=== PATIENT | female | born 1945 | race Caucasian/White ===

== ENCOUNTER 2022-06-16 13:41 | Outpatient (CLI) | payer MEDICARE, OTHER, SELFPAY ==
--- NOTE | 2022-06-16 14:19 | XR_ITS ---
WS: [id number] XR cervical spine fl/ex [id number] REASON FOR EXAM: CERVICALGIA FINDINGS: Reversal of the normal lordosis of the cervical spine. Significant deviation of the cervical spine from vertical orientation. There is a linear lucency anteriorly in the base of the odontoid which has sclerotic margins. More po steriorly there appears to be bony contiguity. The odontoid C1 articulation appears abnormal possibly due to fusion. C6 and C7 are fused. C5-C6 and C4-C5 interspaces are significantly narrowed. Mild narrowing of the C3-C4 disc space. 2 mm of neutral anterolisthesis of C2 on C3. 3 mm of neutral anterolisthesis of C3 on C4. The above the listheses do not appear to change significantly with flexion. The essentially completel y reduced with extension. No other abnormal vertebral body movement with flexion and extension. XR/XR cervical spine fl/ex [id number] IMPRESSION: Abnormal curvature and orientation of the cervical spine as above. Abnormality of C1/C2 which is incompletely characterized. CT scan of the cervic al spine is recommended as clinically warranted to fully characterize the perce ived abnormality. Degenerative disc disease as described above. Fusion of C6 and C7.
== END 2022-06-16 13:42 | disposition home or self-care (01) ==
PROVIDERS: Visit Provider Nurse Practitioner
DX: M54.2 Cervicalgia (principal)
CPT/HCPCS: 72040

== ENCOUNTER → 2022-07-06 11:43 | Outpatient (BNVA) | payer MEDICARE, OTHER, SELFPAY | PROVIDERS: PCP Family Medicine; Visit Provider Internal Medicine Rheumatology | DX: M81.0 Age-related osteoporosis without current pathological fracture (principal); Z79.899 Other long term (current) drug therapy; M19.042 Primary osteoarthritis, left hand; M19.041 Primary osteoarthritis, right hand; M25.50 Pain in unspecified joint | CPT/HCPCS: 36415; 73130; 80076; 82306; 82565; 85025; 85651; 86140; 86200; 86431; 99204 ==

== ENCOUNTER 2022-07-29 13:23 | Oncology outpatient (recurring) (ONCR) | payer MEDICARE, OTHER, SELFPAY ==
[2022-07-29 13:51] VITALS: BP 117/71; PULSE 80; RESP 16; TEMP 37.1; O2SAT 96
[2022-07-29] MEDS: romosozumab-aqqg 210 mg/2.34 mL syr SUBCUT (14:15)
== END 2022-08-07 23:59 | disposition home or self-care (01) ==
PROVIDERS: PCP Family Medicine; Visit Provider Internal Medicine Rheumatology
DX: M81.0 Age-related osteoporosis without current pathological fracture (principal); Z79.899 Other long term (current) drug therapy
CPT/HCPCS: 96372; J3590

== ENCOUNTER → 2022-08-17 11:01 | Outpatient (BNVA) | payer MEDICARE, OTHER, SELFPAY | PROVIDERS: PCP Family Medicine; Visit Provider Podiatrist Foot & Ankle Surgery | DX: I73.9 Peripheral vascular disease, unspecified (principal); M20.41 Other hammer toe(s) (acquired), right foot; M20.42 Other hammer toe(s) (acquired), left foot; B35.1 Tinea unguium | CPT/HCPCS: 11721; 99203 ==

== ENCOUNTER 2022-08-26 11:29 | Oncology outpatient (recurring) (ONCR) | payer MEDICARE, OTHER, SELFPAY ==
[2022-08-26] MEDS: romosozumab-aqqg 210 mg/2.34 mL syr SUBCUT (12:29)
[2022-08-26 12:37] VITALS: BP 131/73; PULSE 72; RESP 16; TEMP 35.8; O2SAT 98
[2022-08-26 21:49] LABS: Albumin Level 4.1 g/dL (3.5-5.2)
== END 2022-09-06 23:59 | disposition home or self-care (01) ==
LOC: ONCMED 11:29
PROVIDERS: PCP Family Medicine; Visit Provider Internal Medicine Rheumatology
DX: M81.0 Age-related osteoporosis without current pathological fracture (principal); Z87.310 Personal history of (healed) osteoporosis fracture; I45.81 Long QT syndrome; M15.4 Erosive (osteo)arthritis; M25.50 Pain in unspecified joint; Z79.899 Other long term (current) drug therapy
CPT/HCPCS: 36415; 80076; 82040; 82306; 82310; 82565; 85025; 86140; 96372; 96377; 99214; J3590

== ENCOUNTER 2022-09-29 11:00 | Oncology outpatient (recurring) (ONCR) | payer MEDICARE, OTHER, SELFPAY ==
[2022-09-29] MEDS: romosozumab-aqqg 210 mg/2.34 mL syr SUBCUT (10:56)
[2022-09-29 11:00] VITALS: BP 116/72; PULSE 100; RESP 18; TEMP 36.2; O2SAT 97
== END 2022-10-07 23:59 | disposition home or self-care (01) ==
PROVIDERS: PCP Family Medicine; Visit Provider Internal Medicine Rheumatology
DX: M50.322 Other cervical disc degeneration at C5-C6 level (principal); M81.0 Age-related osteoporosis without current pathological fracture
CPT/HCPCS: 72040; 96372; 99204; J3590

== ENCOUNTER 2022-10-20 11:41 | Outpatient (CLI) | payer MEDICARE, OTHER, SELFPAY ==
--- NOTE | 2022-10-20 11:45 | MR_ITS ---
WS: [id number] MRI CERVICAL SPINE NONCONTRAST TECHNIQUE: Sagittal T1, T2 and STIR imaging. Axial T2, gradient, and fiesta imaging. CLINICAL INFORMATION: neck pa COMPARISON: None. FINDINGS: Straightening of the normal cervical lordosis. Bony fusion C6-C7 vertebral bodies and posterior eleme nts. No high-grade central canal stenosis. Cord signal is normal. Mild degenerative edema in the RIGH T C1-C2 articulation. Mild pannus formation. C2-C3: Small central disc osteophyte complex. Slight contact of the cervical cord. Mild central canal stenosis. Moderate facet arthropathy. Mild LEFT foraminal narrowing. C3-C4: Mild disc osteophyte complex with endplate ridging. Moderate bilateral bony foraminal narrowin g. Moderate facet arthropathy worse RIGHT. Mild central canal stenosis. C4-C5: Disc osteophyte complex endplate ridging. Mild central canal stenosis. Moderate LEFT and mild RIGHT bony foraminal narrowing. Moderate facet arthropathy. C5-C6: Disc osteophyte complex endplate ridging. Mild central canal stenosis. Moderate LEFT and mild RIGHT bony foraminal narrowing. Moderate facet arthropathy worse RIGHT. C6-C7: Prior postoperative changes interbody fusion. Mild LEFT and no significant RIGHT foraminal gilberto rowing. Moderate facet arthropathy. Spinal canal is patent C7-T1:Mild LEFT greater than RIGHT bony foraminal narrowing. Spinal canal is patent. Mild facet arthr opathy. T1-T2: Mild LEFT and no RIGHT foraminal narrowing. Spinal canal is patent. Slight anterolisthesis T1 on T2. T2 hyperintense RIGHT thyroid nodule measuring 9 mm. Visualized brain stem structures: Normal. Prevertebral soft tissues: Normal. MR/MR cervical spin wo con* [id number] IMPRESSION: 1. Interbody bony fusion C6-C7 with posterior element fusion. 2. Disc osteophyte complexes with shallow central protrusions and mild central canal stenosis C2-C3, C3-C4, C4-C5 C5-C6 with slight contact of the cervical c ord. 3. Moderate bony foraminal narrowing worse at bilateral C3-C4, LEFT C4-C5, LEF T C5-C6.
== END 2022-10-20 11:42 | disposition home or self-care (01) ==
LOC: RAD 11:43
PROVIDERS: PCP Family Medicine; Visit Provider Orthopaedic Surgery
DX: M47.812 Spondylosis without myelopathy or radiculopathy, cervical region (principal); M25.78 Osteophyte, vertebrae; M54.2 Cervicalgia
CPT/HCPCS: 72141

== ENCOUNTER 2022-11-03 10:58 | Oncology outpatient (recurring) (ONCR) | payer MEDICARE, OTHER, SELFPAY ==
[2022-11-03 11:31] VITALS: BP 117/77; PULSE 84; RESP 18; TEMP 36.6; O2SAT 96
[2022-11-03 12:00] VITALS: BP 149/78; PULSE 78; RESP 18; TEMP 36.6; O2SAT 98
[2022-11-03] MEDS: romosozumab-aqqg 210 mg/2.34 mL syr SUBCUT (12:00)
[2022-11-03 12:39] LABS: Albumin Level 3.7 g/dL (3.5-5.2); Calcium 8.8 mg/dL (8.5-10.5)
[2022-11-03 14:59] LABS: 25 Hydroxy Vitamin D 51 ng/mL (30-100)
== END 2022-11-06 23:59 | disposition home or self-care (01) ==
PROVIDERS: PCP Family Medicine; Visit Provider Internal Medicine Rheumatology
DX: M50.322 Other cervical disc degeneration at C5-C6 level (principal); M81.0 Age-related osteoporosis without current pathological fracture; Z79.899 Other long term (current) drug therapy
CPT/HCPCS: 73560; 73565; 82040; 82306; 82310; 82565; 96372; 99214; J3590

== ENCOUNTER 2022-12-01 10:13 | Oncology outpatient (recurring) (ONCR) | payer MEDICARE, OTHER, SELFPAY ==
[2022-12-01] MEDS: romosozumab-aqqg 210 mg/2.34 mL syr SUBCUT (11:55)
[2022-12-01 12:02] VITALS: BP 150/89; PULSE 109; RESP 17; TEMP 36.4; O2SAT 98
== END 2022-12-07 23:59 | disposition home or self-care (01) ==
LOC: ONCMED 10:14
PROVIDERS: PCP Family Medicine; Visit Provider Internal Medicine Rheumatology
DX: M81.0 Age-related osteoporosis without current pathological fracture (principal); H61.22 Impacted cerumen, left ear; H66.92 Otitis media, unspecified, left ear; Z79.899 Other long term (current) drug therapy
CPT/HCPCS: 31575; 69210; 96372; 99204; J3590

== ENCOUNTER → 2022-12-08 10:11 | Outpatient (BNVA) | payer MEDICARE, OTHER, SELFPAY | PROVIDERS: PCP Family Medicine; Visit Provider Orthopaedic Surgery | DX: Z01.818 Encounter for other preprocedural examination (principal); Z86.19 Personal history of other infectious and parasitic diseases; M47.22 Other spondylosis with radiculopathy, cervical region; Z79.899 Other long term (current) drug therapy | CPT/HCPCS: 80053; 81000; 81003; 85025; 87086 ==

== ENCOUNTER 2022-12-21 10:01 | Inpatient (IN) | payer MEDICARE, OTHER, SELFPAY ==
[2022-12-18 12:40] VITALS: BMI 27.6
[2022-12-21] VITALS (17 sets, daily range): BP systolic 147–167; BP diastolic 81–115; PULSE 93–118; RESP 14–20; TEMP 36.1–36.7; O2SAT 93–99
--- NOTE | 2022-12-21 | XR_ITS ---
WS: [id number] C-ARM RADIOGRAPHS CERVICAL SPINE; 3 IMAGES HISTORY: ACDF C3-6 COMPARISON: None available. Intraoperative imaging during anterior cervical spine fusion extending from C3-C6. Postsurgical guo es are noted in the anterior soft tissues. Patient is intubated. On the AP projection the endotrachea l tube appears to terminate near the C7-T1 level. IMPRESSION: Intraoperative imaging during anterior cervical spine fusion. Endotracheal tube tip ending at the C7-T1 level.
--- NOTE | 2022-12-21 06:28 | PM.HP ---
Providers/Chief Complaint Primary Care Provider: Latosha Hendricks MD Chief Complaint: M47.22 History of Present Illness Zohra Diallo is a 77 year old female ?She rates her pain 02/16 today. She describes pain to her neck and right shoulder. She describes increase balance issues and frequent falls. ? She states she fell on Wednesday in her home. Review of Systems General: Reports: 10 or more systems reviewed and unremarkable except in HPI and below Const: Denies: fever(s) or chills Eyes: Denies: eye discharge ENMT: Denies: throat pain Card: Denies: chest pain Resp: Denies: dyspnea or productive cough GI: Denies: nausea or vomiting : Denies: flank pain Musc: Reports: neck pain and extremity pain Skin/Breast: Denies: rash Neuro: Reports: lack of coordination, difficulty walking and frequent falls Psych: Denies: anxiety Endo: Denies: polyuria Tk/Lymph: Denies: easy bruising All/Imm: Denies: urticaria Medications/Allergies Home Medications Medication Instructions Recorded Confirmed Last Taken Type cetirizine 10 mg tablet (All Day 10 mg PO DAILY PRN allergies 04/22/22 12/18/22 12/20/22 History Allergy (cetirizine)) pregabalin 150 mg capsule (Lyrica) 150 mg PO BID 04/22/22 12/18/22 12/19/22 History zinc sulfate 50 mg zinc (220 mg) 50 mg PO DAILY 04/22/22 12/18/22 12/20/22 History tablet hydrocodone 10 mg-acetaminophen 1 tab PO Q6H PRN pain 30 days #120 06/12/22 12/18/22 12/20/22 Rx 325 mg tablet tabs cyclosporine 0.05 % eye drops 1 drp ophthalmic (eye) Q12H 90 07/15/22 12/18/22 Unknown Rx (Restasis MultiDose) days #16.5 mL sumatriptan succinate 100 mg tablet See Rx Instructions PO .COMPLEX 08/03/22 12/21/22 12/20/22 Rx #14 tabs prednisone 20 mg tablet See Rx Instructions PO .COMPLEX 08/28/22 12/18/22 Unknown Rx PRN joint pain flare #30 tabs amlodipine 5 mg tablet 5 mg PO DAILY #90 tabs 10/12/22 12/18/22 12/18/22 Rx cholecalciferol (vitamin D3) 50 2,000 unit PO DAILY #90 tabs 10/12/22 12/18/22 12/18/22 Rx mcg (2,000 unit) tablet cyclobenzaprine 5 mg tablet 5 mg PO TID PRN muscle spasm #270 10/12/22 12/18/22 12/20/22 Rx tabs donepezil 5 mg tablet (Aricept) 5 mg PO DAILY #90 tabs 10/12/22 12/18/22 12/20/22 Rx famotidine 20 mg tablet 20 mg PO BID #180 tabs 10/12/22 12/18/22 12/18/22 Rx levothyroxine 75 mcg tablet 75 mcg PO DAILY #90 tabs 10/12/22 12/18/22 12/20/22 Rx lisinopril 40 mg tablet 40 mg PO DAILY #90 tabs 10/12/22 12/18/22 12/20/22 Rx pantoprazole 40 mg tablet,delayed 40 mg PO DAILY #90 tabs 10/12/22 12/18/22 12/19/22 Rx release quetiapine 25 mg tablet (Seroquel) 25 mg PO DAILY #90 tabs 10/12/22 12/18/22 12/20/22 Rx sertraline 50 mg tablet 50 mg PO DAILY #90 tabs 10/12/22 12/18/22 12/20/22 Rx cephalexin 500 mg capsule See Rx Instructions .Route 11/06/22 12/18/22 12/20/22 Rx .COMPLEX #90 caps calcium carbonate 200 mg calcium 200 mg PO QID 12/08/22 12/18/22 12/18/22 History (500 mg) chewable tablet (Antacid (calcium carbonate)) multivitamin 1 tab PO DAILY 12/08/22 12/18/22 12/18/22 History Intraoperative Neurophysiological #1 ea 12/18/22 12/18/22 Unknown Rx Monitoring Allergies Allergy/AdvReac Type Severity Reaction Status Date / Time nystatin Allergy ADR-Nausea Verified 12/21/22 06:26 erythromycin base AdvReac Mild ADR-Nausea Verified 12/18/22 12:34 PFSH Acute PFSH: Medical History (Updated 12/08/22 @ 10:46 by Jose Martin Lennon NP) Anxiety Arthritis GERD (gastroesophageal reflux disease) Hx of staphylococcal infection on keflex TID chronically Hypertension Hypothyroid Memory change Osteoarthritis of hands, bilateral Osteoporosis Polyarthralgia Staph infection Surgical History (Updated 12/08/22 @ 10:34 by Jose Martin Lennon NP) History of revision of total replacement of left knee joint History of revision of total replacement of right knee joint Hx of cholecystectomy Hx of fracture of femur Hx of gastric bypass Hx of shoulder surgery Hx of total knee replacement Hx of tubal ligation Family History (Updated 12/08/22 @ 10:34 by Jose Martin Lennon NP) Father , age 69, pancreatic ca CAD (coronary artery disease) Cancer Diabetes Mother Dementia Stroke Hypertension Grandmother Diabetes Hypertension Denies family history of Clotting disorder Psychiatric illness Anesthesia complication Bleeding disorder Social History Smoking and tobacco status: former smoker Quit status (tobacco): has quit using tobacco Year quit tobacco: PPD x 3 yrs Second hand smoke exposure: No Alcohol intake: never Substance/Drug Use: never Lives independently: Yes Household members: family Marital status: / service: No Current occupational status: retired Current gender identity: Female Special jaky needs: No Agree to transfusion: Yes Vitals/I&O/Wt Last Vital Signs Temp 97 F L 12/21/22 06:09 Pulse 112 H 12/21/22 06:09 Resp 20 H 12/21/22 06:09 BP 165/115 12/21/22 06:09 Pulse Ox 98 12/21/22 06:09 O2 Del Method Room Air 12/21/22 06:17 Physical Exam Narrative: CONSTITUTIONAL: This is a normal appearing? in76 year old female no acute distress. PSYCH: The patient is oriented to person, place and time. SKIN: The skin is of normal color and texture. NEURO: Patient is neurovascularly intact. MUSCULOSKELETAL / EXTREMITIES: 1.? lnjury(s): neck pain A&P Assessment and plan (1) Cervical spondylosis with radiculopathy: CONSTITUTIONAL: This is a normal appearing? in76 year old female no acute distress. PSYCH: The patient is oriented to person, place and time. SKIN: The skin is of normal color and texture. NEURO: Patient is neurovascularly intact. MUSCULOSKELETAL / EXTREMITIES: 1.? lnjury(s): neck pain Attestations Medical Necessity Statement*: failed conservative tx Coding Level of Care Code Acute Code for Chg Fwd Diagnoses Cervical spondylosis with radiculopathy M47.22
[2022-12-21] MEDS: sodium chloride 0.9% 1,000 ML 30 ML IV (06:36)
[2022-12-21] MEDS: ceFAZolin 2,000 MG in sodium chloride 0.9% (plus) 50 ML 100 MG IV ×3 (07:00→22:36)
[2022-12-21] MEDS: lidocaine-epi 1% 20 mL INJ INJECTION (07:35)
--- NOTE | 2022-12-21 08:01 | ANES.PREANE2 ---
Pre-Anesthetic Assessment Height/Weight: Height 1.57 m Weight 68.492 kg Temp Pulse Resp BP Pulse Ox O2 Del Method 97 F L 112 H 20 H 165/115 98 Room Air 12/21/22 06:09 12/21/22 06:09 12/21/22 06:09 12/21/22 06:09 12/21/22 06:09 12/21/22 06:17 Preop Diagnosis: Cervical spondylosis with radiculopathy Operation Date: 12/21/22 07:00 Proposed Procedures p C3-4 C4-5 C5-6 ACDF [id number] x3,[id number],M47.22(Not Applicable) - Peewee Rice, DO Familial anesthetic complications: none Was Beta Alek taken within 24 hours: N/A Was Clonidine taken within 24 hours: N/A Last intake: Intake Last Liquid Date 12/20/22 Last Liquid Time 21:30 Last Solid Date 12/20/22 Last Solid Time 18:30 Social No alcohol and No tobacco Exam alert, oriented x 3, clear to auscultation bilaterally and regular rate & rhythm Airway Submandibular: within normal limits Cervical ROM: Other (limited from prior fixation and pain) Mallampati: Class II Dentition: full CV/HEM Hypertension GI Gastroesophageal Reflux Disease Metabolic Thyroid Disease Chronic steroid Musc/skel Osteoarthritis/DJD Chronic pain/opioid Neuropsych Anxiety and Neuropathy Anesthetic Plan ASA status: 3 Anesthesia: General Medications/Allergies Home Medications Medication Instructions Recorded Confirmed Last Taken Type cetirizine 10 mg tablet (All Day 10 mg PO DAILY PRN allergies 04/22/22 12/18/22 12/20/22 History Allergy (cetirizine)) pregabalin 150 mg capsule (Lyrica) 150 mg PO BID 04/22/22 12/18/22 12/19/22 History zinc sulfate 50 mg zinc (220 mg) 50 mg PO DAILY 04/22/22 12/18/22 12/20/22 History tablet hydrocodone 10 mg-acetaminophen 1 tab PO Q6H PRN pain 30 days #120 06/12/22 12/18/22 12/20/22 Rx 325 mg tablet tabs cyclosporine 0.05 % eye drops 1 drp ophthalmic (eye) Q12H 90 07/15/22 12/18/22 Unknown Rx (Restasis MultiDose) days #16.5 mL sumatriptan succinate 100 mg tablet See Rx Instructions PO .COMPLEX 08/03/22 12/21/22 12/20/22 Rx #14 tabs prednisone 20 mg tablet See Rx Instructions PO .COMPLEX 08/28/22 12/18/22 Unknown Rx PRN joint pain flare #30 tabs amlodipine 5 mg tablet 5 mg PO DAILY #90 tabs 10/12/22 12/18/22 12/18/22 Rx cholecalciferol (vitamin D3) 50 2,000 unit PO DAILY #90 tabs 10/12/22 12/18/22 12/18/22 Rx mcg (2,000 unit) tablet cyclobenzaprine 5 mg tablet 5 mg PO TID PRN muscle spasm #270 10/12/22 12/18/22 12/20/22 Rx tabs donepezil 5 mg tablet (Aricept) 5 mg PO DAILY #90 tabs 10/12/22 12/18/22 12/20/22 Rx famotidine 20 mg tablet 20 mg PO BID #180 tabs 10/12/22 12/18/22 12/18/22 Rx levothyroxine 75 mcg tablet 75 mcg PO DAILY #90 tabs 10/12/22 12/18/22 12/20/22 Rx lisinopril 40 mg tablet 40 mg PO DAILY #90 tabs 10/12/22 12/18/22 12/20/22 Rx pantoprazole 40 mg tablet,delayed 40 mg PO DAILY #90 tabs 10/12/22 12/18/22 12/19/22 Rx release quetiapine 25 mg tablet (Seroquel) 25 mg PO DAILY #90 tabs 10/12/22 12/18/22 12/20/22 Rx sertraline 50 mg tablet 50 mg PO DAILY #90 tabs 10/12/22 12/18/22 12/20/22 Rx cephalexin 500 mg capsule See Rx Instructions .Route 11/06/22 12/18/22 12/20/22 Rx .COMPLEX #90 caps calcium carbonate 200 mg calcium 200 mg PO QID 12/08/22 12/18/22 12/18/22 History (500 mg) chewable tablet (Antacid (calcium carbonate)) multivitamin 1 tab PO DAILY 12/08/22 12/18/22 12/18/22 History Intraoperative Neurophysiological #1 ea 12/18/22 12/18/22 Unknown Rx Monitoring Allergies Allergy/AdvReac Type Severity Reaction Status Date / Time nystatin Allergy ADR-Nausea Verified 12/21/22 06:26 erythromycin base AdvReac Mild ADR-Nausea Verified 12/18/22 12:34 Current Medications Generic Name Dose Route Start Last Admin Trade Name Jabierq PRN Reason Stop Dose Admin Sodium Chloride 1,000 mls @ 30 mls/hr 12/21/22 06:00 12/21/22 06:36 Sodium Chloride 0.9% IV 12/22/22 05:59 30 mls/hr .Q24H SHOSHANA Administration PFSH Anesthesia Medical History (Updated 12/08/22 @ 10:46 by Jose Martin eLnnon NP) Anxiety Arthritis GERD (gastroesophageal reflux disease) Hx of staphylococcal infection on keflex TID chronically Hypertension Hypothyroid Memory change Osteoarthritis of hands, bilateral Osteoporosis Polyarthralgia Staph infection Surgical History (Updated 12/08/22 @ 10:34 by Jose Martin Lennon NP) History of revision of total replacement of left knee joint History of revision of total replacement of right knee joint Hx of cholecystectomy Hx of fracture of femur Hx of gastric bypass Hx of shoulder surgery Hx of total knee replacement Hx of tubal ligation Family History (Updated 12/08/22 @ 10:34 by Jose Martin Lennon NP) Father , age 69, pancreatic ca CAD (coronary artery disease) Cancer Diabetes Mother Dementia Stroke Hypertension Grandmother Diabetes Hypertension Denies family history of Clotting disorder Psychiatric illness Anesthesia complication Bleeding disorder Social History Smoking and tobacco status: former smoker Quit status (tobacco): has quit using tobacco Year quit tobacco: PPD x 3 yrs Second hand smoke exposure: No Alcohol intake: never Substance/Drug Use: never Lives independently: Yes Household members: family Marital status: / service: No Current occupational status: retired Current gender identity: Female Special jaky needs: No Agree to transfusion: Yes Data Anesthesia Cardiac Studies: No Data to Display
--- NOTE | 2022-12-21 09:24 | P.OP_ITS ---
Operative Report Date of procedure: December 21, 2022 Pre-op diagnosis: Preop Diagnosis Cervical spondylosis with radiculopathy Post-op diagnosis: same Procedure done: 1. Anterior diskectomy C3/4 2. Anterior diskectomy C4/5 3. Anterior discectomy C5/6 4. Insertion of cage C3/4 5. Insertion of cage C4/5 6. Insertion of Cage C5/6 7. Instrumentation with anterior plate from C3-6 8. Use of allograft Surgeon: Peewee Rice Screen Printing Loader Unloader: Son Beebe Screen Printing Loader Unloader: The surgical assist, Son Beebe, PAC was needed for his expertise under the microscope. He was important and necessary throughout the procedure to complete in a safe and timely manner. He assisted with patient positioning prepping and draping tissue retraction suctioning of the operative field protection of the dural sac and tissue closure Estimated blood loss (mL): 15 Procedure: 1. Anterior diskectomy C3/4 2. Anterior diskectomy C4/5 3. Anterior discectomy C5/6 4. Insertion of cage C3/4 5. Insertion of cage C4/5 6. Insertion of Cage C5/6 7. Instrumentation with anterior plate from C3-6 8. Use of allograft The patient was taken to the operating room, where he underwent general endotracheal anesthesia without complications. He was then positioned supine on the operating table, and all areas of impingement were well padded. The arms were carefully padded and tucked at his sides. A roll was placed between the shoulder blades.. An x-ray was done to determine the appropriate level for the skin incision. The entire neck was then sterilely prepped and draped in the usual fashion. Neuromonitoring was attached prior to prepping. A transverse skin incision was made and carried down to the platysma muscle. This was then split in line with its fibers. Blunt dissection was carried down medial to the carotid sheath and lateral to the trachea and esophagus until the anterior cervical spine was visualized. A needle was placed into a disc and an x-ray was done to determine its location. The longus colli muscles were then elevated bilaterally with the electrocautery unit. Self-retaining retractors were placed deep to the longus colli muscle. Attention was brought to the C3/4 level that was confirmed on x-ray. A caspar pin was placed into the C3 vertebrae and the C4 vertebrae. The disk space was then distracted. The microscope was then brought in. A radical anterior discectomies were performed at C3/4. This included complete removal of the anterior annulus, nucleus, and posterior annulus. The posterior longitudinal ligament was removed as were the posterior osteophytes. Foraminotomies were then accomplished bilaterally. This was done using a high speed ramon, kerrison rongeurs and curretes Once all of this was accomplished, the curved currette was used to check for any residual compression. The central canal was wide open as were the foramen. A high-speed bur was used to remove the cartilaginous endplates above and below the interspace. Bleeding cancellous bone was exposed. The disc space were measured and appropriate size cage were placed sterilely onto the field. Allograft graft was packed into the cages. The cage was then placed and there was good juxtaposition against the bleeding decorticated surfaces and good distraction of each interspace. Attention was brought to the next interspace. The [place] pins were removed. Bone wax was used to prevent any bleeding from occurring at the pin sites. Attention was brought to the C4/5 level that was confirmed on x-ray. A caspar pin was placed into the C4 vertebrae and the C5 vertebrae. The disk space was then distracted. The microscope was then brought in. A radical anterior discectomies were performed at C4/5. This included complete removal of the anterior annulus, nucleus, and posterior annulus. The posterior longitudinal ligament was removed as were the posterior osteophytes. Foraminotomies were then accomplished bilaterally. This was done using a high speed ramon, kerrison rongeurs and curretes Once all of this was accomplished, the curved currette was used to check for any residual compression. The central canal was wide open as were the foramen. A high-speed bur was used to remove the cartilaginous endplates above and below the interspace. Bleeding cancellous bone was exposed. The disc space were measured and appropriate size cage were placed sterilely onto the field. Allograft graft was packed into the cages. The cage was then placed and there was good juxtaposition against the bleeding decorticated surfaces and good distraction of each interspace. Attention was brought to the next interspace. The [place] pins were removed. Bone wax was used to prevent any bleeding from occurring at the pin sites. Attention was brought to the C5/6 level that was confirmed on x-ray. A caspar pin was placed into the C5 vertebrae and the C6 vertebrae. The disk space was then distracted. The microscope was then brought in. A radical anterior d iscectomies were performed at C5/6. This included complete removal of the anterior annulus, nucleus, and posterior annulus. The posterior longitudinal ligament was removed as were the posterior osteophytes. Foraminotomies were then accomplished bilaterally. This was done using a high speed ramon, kerrison rongeurs and curretes Once all of this was accomplished, the curved currette was used to check for any residual compression. The central canal was wide open as were the foramen. A high-speed bur was used to remove the cartilaginous endplates above and below the interspace. Bleeding cancellous bone was exposed. The disc space were measured and appropriate size cage were placed sterilely onto the field. Allograft graft was packed into the cages. The cage was then placed and there was good juxtaposition against the bleeding decorticated surfaces and good distraction of each interspace. Attention was brought to the next interspace. The [place] pins were removed. Bone wax was used to prevent any bleeding from occurring at the pin sites. The appropriate size anterior cervical locking plate was chosen and bent into gentle lordosis. Two screws were then placed into each of the vertebral bodies at C3, C4, C5 and C6. There was excellent purchase. A final x-ray was done confirming good position of the hardware and Cages. The locking screws were then applied, also with excellent purchase. Following a final copious irrigation, there was good hemostasis and no dural leaks. The carotid pulse was strong. The wounds were then closed in layers using 2-0 Vicryl suture for the platysma muscle, 2-0 Vicryl suture for the subcutaneous tissue, and 4-0 monocryl suture in a subcuticular skin closure. Glue was placed followed by application of a sterile dressing. The drain was hooked to bulb suction. A soft collar was applied. The patient was then carefully returned to the supine position on his hospital bed where he was reversed and extubated and taken to the recovery room having tolerated the procedure well.
[2022-12-21] MEDS: lactated ringers 1,000 ML 90 ML IV ×2 (10:58→22:35)
[2022-12-21] MEDS: calcium carbonate 500 mg Chew Tablet 200 MG PO ×3 (12:37→20:28)
[2022-12-21] MEDS: HYDROcodone-acetaminophen 10-325 mg Tablet PO ×2 (13:51→19:15)
--- NOTE | 2022-12-21 16:57 | ANE.PACU2 ---
Inpatient post-anesthesia follow up: Airway intact: Yes Vital signs: Temperature 98.0 F Pulse Rate 99 Respiratory Rate 16 Blood Pressure 167/98 Pulse Oximetry 96 Oxygen Delivery Me thod Room Air Oxygen Flow Rate 6 Fraction of Inspir ed Oxygen Hydration adequate: Yes Nausea and vomiting: No Pain level: 3 Mental status: Baseline
[2022-12-21] MEDS: docusate sodium 100 mg Capsule PO (17:54)
[2022-12-21] MEDS: pregabalin 150 mg Capsule PO (17:54)
[2022-12-21] MEDS: famotidine 20 mg Tablet PO (17:54)
[2022-12-21] MEDS: magnesium hydroxide 30 mL UDC PO (20:23)
[2022-12-22] VITALS: BP 149/84; PULSE 92; RESP 17; TEMP 36.3; O2SAT 94
[2022-12-22 04:00] VITALS: BP 132/84; PULSE 101; RESP 16; TEMP 36.4; O2SAT 92
[2022-12-22] MEDS: HYDROcodone-acetaminophen 10-325 mg Tablet PO ×3 (06:09→14:19)
[2022-12-22] MEDS: ceFAZolin 2,000 MG in sodium chloride 0.9% (plus) 50 ML 100 MG IV (06:10)
--- NOTE | 2022-12-22 06:49 | P.PN_ITS ---
Subjective Subjective: POD 1 Resting comfortably. Denies any voice changes. Reports arms are feeling much better. Denies any shortness of breath chest pain or headaches. Vitals/I&O/Wt Last Vital Signs Temp 97.6 F 12/22/22 04:00 Pulse 101 H 12/22/22 04:00 Resp 16 12/22/22 04:00 BP 132/84 12/22/22 04:00 Pulse Ox 92 12/22/22 04:00 O2 Del Method Room Air 12/21/22 14:57 O2 Flow Rate 6 12/21/22 09:24 12/21/22 12/21/22 12/22/22 14:59 22:59 06:59 Intake Total 735.5 / 735.5 1410 / 2145.5 200 / 2345.5 Output Total 100 / 100 150 / 250 350 / 600 Balance 635.5 / 635.5 1260 / 1895.5 -150 / 1745.5 Physical Exam Narrative: Patient is alert and oriented x3 with a good general appearance normal mood and affect. Mildly tender with palpation about the incisional site with Hemovac drain intact. Incision appears to be clean and dry without signs of erythema or drainage. No signs of infection. Good motor strength throughout both upper extremities. Appears to fire in all motor groups with 5/5 strength. Hands are warm good cap refill in all digits. Normal sensation to light touch in all dermatomal areas. Urinary Catheter Management: Oh: Cath Placed During This Visit: yes, but has since been removed by the nurse Urinary Catheter Date of Insertion: 12/21/22 Urinary Catheter Time of Insertion: 07:15 Date Urinary Catheter Removed: 12/21/22 Time Urinary Catheter Discontinued: 09:06 A&P Assessment and plan (1) Status post cervical spinal fusion: Discontinue Hemovac drain. Encouraged her to continue walking program. No bending lifting or twisting or overhead lifting. Wear the Dougherty J collar follow-up. Continue incentive spirometry for pulmonary toilet. Will discharge home later today. See her back in the office in 1 week's time for a wound check. She will call if she is having problems. Attestations Medical Necessity Statement*: Discharge home later today after Hemovac drain discontinued and physical therapy evaluation Coding Level of Care Code Acute Code for Chg Fwd Diagnoses Status post cervical spinal fusion Z98.1
[2022-12-22 07:50] VITALS: BP 134/75; PULSE 92; RESP 16; TEMP 37.2; O2SAT 94
[2022-12-22] MEDS: amlodipine 5 mg Tablet PO (09:31)
[2022-12-22] MEDS: pantoprazole DR 40 mg Tablet PO (09:31)
[2022-12-22] MEDS: docusate sodium 100 mg Capsule PO (09:31)
[2022-12-22] MEDS: lisinopril 20 mg Tablet 40 MG PO (09:31)
[2022-12-22] MEDS: pregabalin 150 mg Capsule PO (09:31)
[2022-12-22] MEDS: quetiapine 25 mg Tablet PO (09:31)
[2022-12-22] MEDS: cyanocobalamin 1,000 mcg Tablet 2000 MCG PO (09:31)
[2022-12-22] MEDS: sertraline 50 mg Tablet PO (09:31)
[2022-12-22] MEDS: multivitamin therapeutic Tablet 1 TAB PO (09:31)
[2022-12-22] MEDS: donepezil 5 MG Tablet PO (09:31)
[2022-12-22] MEDS: famotidine 20 mg Tablet PO (09:31)
[2022-12-22] MEDS: levothyroxine 75 mcg Tablet PO (09:31)
[2022-12-22] MEDS: calcium carbonate 500 mg Chew Tablet 200 MG PO (09:32)
--- NOTE | 2022-12-22 09:45 | PC.CHAP ---
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 [] Patient/Family/Request visit [] Outpatient visit [] Follow-up visit [] Physician referral [] Code/Alert [x] Routine visit [] Staff referral [] Actively dying [] Patient sleeping [] Family support [] [] Out of room [] Palliative care [] [] Receiving care in room [] Pre-surgical visit [] Trauma [] Long length of stay [] ICU visit [] Other: Relational/Emotional Strength [x] Patient feels connected with others/family/visitors/staff [] Distress [] Loneliness/isolation [] Abandonment Spirituality of Patient [x] Person of Maryellen [x] Attends Zoroastrian of their Maryellen [x] Believes in Prayer [x] Reads Bible or Religion materials [] There are Spiritual issues to be addressed Bail Bonding Agent Interventions [x] Prayer [x] Active listening [] Non-anxious presence [x] Spiritual/emotional support [] Crisis/trauma care [] Spiritual counseling [] Bereavement support [] Provided bereavement packet [] Provided Bible/devotional materials [] Provided toy/stuffed animal, coloring book to patient or family member [] Provided Communion [] Anointing/[place] [] Salvation [x] Completed spiritual assessment [] Other: Impact on Illness or Injury [] Angry [] Fearful [] Anxious [] Often cries [] Exhaustion [] Unable to work [] Unable to attend faith [] Unable to walk/stand [] Unable to read [] Unable to drive [] Unable to eat/drink [] Unable to sleep [] Unable to be with family [] Patient intubated [] Other: Summary Time spent with patient 5 min
[2022-12-22 12:00] VITALS: BP 115/69; PULSE 97; RESP 16; TEMP 36.5; O2SAT 94
--- NOTE | 2022-12-23 12:08 | PM.DCS ---
Discharge Providers Date of Admission: 12/21/22 10:01 Date of Discharge: December 22, 2022 Attending Provider at Admission: Peewee Rice DO Attending Provider at Discharge: Peewee Rice DO Primary Care Provider: Latosha Hendricks MD Diagnoses at Discharge Discharge Diagnosis (1) Status post cervical spinal fusion: Status: Acute Reason for Visit Reason for Visit: M47.22 Physical Exam Urinary Catheter Management: Oh: Cath Placed During This Visit: yes, but has since been removed by the nurse Urinary Catheter Date of Insertion: 12/21/22 Urinary Catheter Time of Insertion: 07:15 Date Urinary Catheter Removed: 12/21/22 Time Urinary Catheter Discontinued: 09:06 Discharge Data Studies Completed and Pending Completed Studies During Hospitalization Category Date Time Status XR cervical spine 3V* [id number] Routine Exams 12/21/22 Completed Vitals Last Vital Signs Temp 97.7 F 12/22/22 12:00 Pulse 97 12/22/22 12:00 Resp 16 12/22/22 12:00 BP 115/69 12/22/22 12:00 Pulse Ox 94 12/22/22 12:00 O2 Del Method Room Air 12/22/22 12:00 O2 Flow Rate 6 12/21/22 09:24 Discharge Plan Discharge Patient Disposition: Home Condition: Stable Prescriptions: New (DME) Intraoperative Neurophysiological Monitoring See Rx Instructions .Route .MEDSUPPLY Qty: 1 0RF Rx Instructions: As directed hydrocodone-acetaminophen 10-325 mg Tablet 1 - 2 tab PO Q4H PRN (Reason: Postoperative pain) Qty: 40 0RF Continued sumatriptan succinate 100 mg tablet See Rx Instructions PO .COMPLEX Qty: 14 3RF Rx Instructions: take 1 tab at onset of headache; if no relief, may repeat 1 tab after at least 2 hrs; max = 2 tabs/24 hrs PO multivitamin Tablet 1 tab PO DAILY calcium carbonate [Antacid (calcium carbonate)] 200 mg calcium (500 mg) tablet,chewable 200 mg PO QID pregabalin [Lyrica] 150 mg capsule 150 mg PO BID zinc sulfate 50 mg zinc (220 mg) tablet 50 mg PO DAILY cetirizine [All Day Allergy (cetirizine)] 10 mg tablet 10 mg PO DAILY PRN (Reason: allergies) hydrocodone-acetaminophen 10-325 mg tablet 1 tab PO Q6H PRN (Reason: pain) 30 Days Qty: 120 0RF Restasis MultiDose 0.05 % drops 1 drp ophthalmic (eye) Q12H 90 Days Qty: 16.5 1RF prednisone 20 mg tablet See Rx Instructions PO .COMPLEX PRN (Reason: joint pain flare) Qty: 30 1RF Rx Instructions: take 1 tab daily for 5 days as needed for arthritis flare PO PRN; amlodipine 5 mg tablet 5 mg PO DAILY Qty: 90 1RF cholecalciferol (vitamin D3) 50 mcg (2,000 unit) tablet 2,000 unit PO DAILY Qty: 90 1RF famotidine 20 mg tablet 20 mg PO BID Qty: 180 1RF levothyroxine 75 mcg tablet 75 mcg PO DAILY Qty: 90 0RF lisinopril 40 mg tablet 40 mg PO DAILY Qty: 90 1RF pantoprazole 40 mg tablet,delayed release (DR/EC) 40 mg PO DAILY Qty: 90 1RF quetiapine [Seroquel] 25 mg tablet 25 mg PO DAILY Qty: 90 0RF sertraline 50 mg tablet 50 mg PO DAILY Qty: 90 0RF donepezil [Aricept] 5 mg tablet 5 mg PO DAILY Qty: 90 1RF cyclobenzaprine 5 mg tablet 5 mg PO TID PRN (Reason: muscle spasm) Qty: 270 1RF cephalexin 500 mg capsule See Rx Instructions .ROUTE .COMPLEX Qty: 90 1RF Dose Instruction: TAKE ONE CAPSULE BY MOUTH THREE TIMES DAILY Rx Instructions: TAKE ONE CAPSULE BY MOUTH THREE TIMES DAILY Discharge Orders: Discharge Order (Routine); Ordered 12/22/22 Ordered By: Son Beebe Referrals: Peewee Rice DO [Physician] - 12/29/22 10:15 am (appointmenyt with angel) Discharge Diet: Advance as tolerated Discharge Activity: Limit activity as instructed Patient Instructions: Hydrocodone/Acetaminophen (By mouth), Anterior Cervical Discectomy (DC), Opioid Safety Activity Restrictions/Additional Instructions: Thank you for choosing [facility] for your care! The following is a list of instructions, from your provider, to follow upon your discharge to ensure you have the optimal recovery from your recent injury or surgery. Anterior Cervical Discectomy and Fusion: What to Expect at Home Your Recovery Follow-up care is a milligan part of your treatment and safety. Be sure to make and go to all appointments, and call your doctor if you are having problems. If you do not already have a follow-up appointment made, call office in the next 1-3 days to make follow up appointment for 1-2 weeks at [phone]. It is also a good idea to know your test results and keep a list of the medicines you take. You can expect your neck to feel stiff or sore after surgery. This should improve in the weeks after surgery. But it may take 4 to 6 months for you to get better completely. You may have trouble sitting or standing in one position for very long and may need pain medicine in the weeks after your surgery. It may take 4 to 6 weeks to get back to your usual activities, but it may depend on what kind of surgery you had. Your throat will feel sore and it may be difficult to swallow for the first 3 days after your surgery. As long as you can get liquids down without difficulty, this should slowly improve, otherwise call our office or seek medical attention if it becomes increasingly difficult to get anything down including liquids. Avoid hot liquids for first 3-5 days. Soothing foods/liquids such as jello, pudding, and luke warm soups are recommended until swallowing improves. Staying elevated will also help, it's advised you keep propped up at while sleeping to help reduce the swelling. You may use an ice pack directly on your incision or around it on the front of your neck, using a cloth to protect your skin; and a heating pad to the back of your neck as needed. Do not use over the counter anti-inflammatory medications (Ibuprofen, Motrin, Aleve, Advil, etc) Taking these meds after having a fusion can delay fusion rates, we recommend you avoid them for the first 3 months after your surgery[address] Dr. Rice may advise you to work with a physical therapist to strengthen the muscles around your neck and back - this will be discussed at your follow - up appointments. The pain or numbness you were having in your arms before surgery should get better or go away completely. This care sheet gives you a general idea about how long it will take for you to recover. But each person recovers at a different pace. Follow the steps below to get better as quickly as possible. How can you care for yourself at home? Activity ? Rest when you feel tired. Getting enough sleep will help you recover. ? Try to walk each day. Start by walking a little more than you did the day before. Bit by bit, increase the amount you walk. Walking boosts blood flow and helps prevent pneumonia and constipation. Walking may also decrease your muscle soreness after surgery. ? No lifting anything that is more that 5 pounds. This may include heavy grocery bags and milk containers, a heavy briefcase or backpack, cat litter or dog food bags, a child, or a vacuum beer coil cleaner. ? Avoid strenuous activities, such as bicycle riding, jogging, weightlifting, or aerobic exercise, until your doctor says it is okay. ? Do not drive until your follow-up visit after your surgery, or until your doctor says it isokay. ? Avoid taking long car trips for 2 to 4 weeks after surgery. Your neck may become tired and painful from sitting too long in one position. ? You will probably need to take 4 to 6 weeks off from work. It depends on the type of work you do and how you feel. ? You may have sex as soon as you feel able, but avoid positions that put stress on your neck or cause pain. Diet ? You can eat your normal diet. If your stomach is upset, try bland, low-fat foods like plain rice, broiled chicken, toast, and yogurt ? Drink plenty of fluids. If you have kidney, heart, or liver disease and have to limit fluids, talk with your doctor before you increase the amount of fluids you drink. ? You may notice that your bowel movements are not regular right after your surgery. This is common. Try to avoid constipation and straining with bowel movements. You may want to take a fiber supplement every day. If you have not had a bowel movement after a couple of days, ask your doctor about taking a mild laxative. Medicines ? Take pain medicines exactly as directed. 1. If Dr. Rice gave you a prescription medicine for pain, take lt as prescribed. 2. Do not take two or more pain medicines at the same time unless the doctor told you to. Many pain medicines have acetaminophen, which is Tylenol. Too much acetaminophen {Tylenol) can be harmful. 3. If you think your pain pill is making you sick to your stomach: 4. Take your pills after meals (unless your doctor has told you not to). 5. Ask your Dr. for a different pain pill. Incisioncare ? Remove your dressing 48 hours after your surgery. Ok to shower and get the incision wet. Do not overtly wash your incision. When done, pad dry, leave open to air thereafter. Avoid creams and ointments directly on your incision. ? Your sutures in the incision will dissolve and fall out on their own. ? Keep the area clean and dry. You may cover it with a gauze bandage if it weeps or rubs against clothing; if you choose to do this, change the dressing everyday. Other instructions ? Use a heating pad, hot water bottle, or gentle massage on your back to reduce stiffness. Avoid putting heat on your incision When should you call for help? ? Call 911 anytime you think you may need emergency care. For example, call if: ? You pass out (lose consciousness). ? You have sudden chest pain and shortness of breath, or you cough upblood. ? You cannot swallow. ? You have severe pain in your neck or back. ? Call your Dr. or seek immediate medical care if: ? You have pain that does not get better after you take pain pills. ? You have loose stitches, or your incision comes open. ? You have blood or fluid draining from the incision. ? You have signs of infection, such as: 1. Increased pain, swelling, warmth, or redness. 2. Red streaks leading from the site. 3. Pus draining from the site. 4. Swollen lymph nodes in your neck or armpits. 5. A fever. ? You have severe pain in your arms. ? You have new or increased weakness or numbness in your arms. ? Watch closely for any changes in your health, and be sure to contact your doctor if: ? You do not have a bowel movement after taking a laxative. Discharge Attestations Time Spent in Discharge Care*: less than 30 min Quality Metrics Clinical Quality Measures [ No reported AMI, CVA or VTE this stay] Coding Level of Care Code Acute Code for Chg Fwd Diagnoses Status post cervical spinal fusion Z98.1
== END 2022-12-22 14:24 | disposition home or self-care (01) | DRG 473 ==
LOC: MEDSURG 10:02
PROVIDERS: Admitting Provider Orthopaedic Surgery; PCP Family Medicine; Visit Provider Orthopaedic Surgery
PROC: 0RB30ZZ Excision of Cervical Vertebral Disc, Open Approach (ICD-10-PCS; CPT 22551; principal; 2022-12-21 07:00)
DX: M47.22 Other spondylosis with radiculopathy, cervical region (principal); W19.XXXA Unspecified fall, initial encounter; F41.9 Anxiety disorder, unspecified; I10 Essential (primary) hypertension; E03.9 Hypothyroidism, unspecified; M19.042 Primary osteoarthritis, left hand; M19.041 Primary osteoarthritis, right hand; M81.0 Age-related osteoporosis without current pathological fracture; Z96.653 Presence of artificial knee joint, bilateral; Z98.84 Bariatric surgery status; Z87.891 Personal history of nicotine dependence
CPT/HCPCS: 51702; 72040; 76000; 97110; 97161; 97530; C1713; C1763; C9359; J0131; J0330; J0690; J1100; J2371; J2405; J2704; J2710; J3010; J3490; J7030; J7120

== ENCOUNTER → 2022-12-29 10:19 | Outpatient (BNVA) | payer MEDICARE, OTHER, SELFPAY | PROVIDERS: PCP Family Medicine; Visit Provider Orthopaedic Surgery | DX: Z47.89 Encounter for other orthopedic aftercare (principal); Z98.1 Arthrodesis status | CPT/HCPCS: 99024 ==

== ENCOUNTER → 2023-01-05 14:51 | Outpatient (BNVA) | payer MEDICARE, OTHER, SELFPAY | PROVIDERS: PCP Family Medicine; Visit Provider Orthopaedic Surgery | DX: Z47.89 Encounter for other orthopedic aftercare (principal); Z98.1 Arthrodesis status | CPT/HCPCS: 72040; 99024 ==

== ENCOUNTER → 2023-03-02 10:46 | Outpatient (BNVA) | payer MEDICARE, OTHER, SELFPAY | PROVIDERS: PCP Family Medicine; Visit Provider Physician Assistant | DX: Z98.1 Arthrodesis status (principal); Z47.89 Encounter for other orthopedic aftercare | CPT/HCPCS: 72040; 99024 ==

== ENCOUNTER → 2023-05-18 09:59 | Outpatient (BNVA) | payer MEDICARE, OTHER, SELFPAY | PROVIDERS: PCP Family Medicine; Visit Provider Orthopaedic Surgery | DX: Z47.89 Encounter for other orthopedic aftercare; Z98.1 Arthrodesis status; M25.562 Pain in left knee; M25.561 Pain in right knee; G44.209 Tension-type headache, unspecified, not intractable | CPT/HCPCS: 72040; 73560; 73565; 99214 ==

== ENCOUNTER → 2023-07-20 09:10 | Outpatient (BNVA) | payer MEDICARE, OTHER, SELFPAY | PROVIDERS: PCP Family Medicine; Visit Provider Nurse Practitioner Family | DX: L57.0 Actinic keratosis (principal); L29.8 Other pruritus; L81.4 Other melanin hyperpigmentation; L57.8 Other skin changes due to chronic exposure to nonionizing radiation; L85.3 Xerosis cutis; D22.62 Melanocytic nevi of left upper limb, including shoulder | CPT/HCPCS: 17000; 99204 ==

== ENCOUNTER → 2024-01-18 10:55 | Outpatient (BNVA) | payer MEDICARE, OTHER, SELFPAY | PROVIDERS: PCP Family Medicine; Visit Provider Nurse Practitioner Family | DX: L29.8 Other pruritus (principal); L81.4 Other melanin hyperpigmentation; L57.8 Other skin changes due to chronic exposure to nonionizing radiation; L85.3 Xerosis cutis; D22.62 Melanocytic nevi of left upper limb, including shoulder; L57.0 Actinic keratosis; D69.2 Other nonthrombocytopenic purpura | CPT/HCPCS: 17000; 99214 ==

== ENCOUNTER → 2024-06-06 09:50 | Outpatient (BNVA) | payer MEDICARE, OTHER, SELFPAY | PROVIDERS: PCP Family Medicine; Visit Provider Podiatrist Foot & Ankle Surgery | DX: B35.1 Tinea unguium (principal); M20.41 Other hammer toe(s) (acquired), right foot; M20.42 Other hammer toe(s) (acquired), left foot; I73.9 Peripheral vascular disease, unspecified | CPT/HCPCS: 11721; 99213 ==

== ENCOUNTER 2024-06-20 13:03 | Outpatient (CLI) | payer MEDICARE, OTHER, SELFPAY ==
--- NOTE | 2024-06-20 13:19 | XR_ITS ---
WS: [id number] XR thoracic spine 3V* [id number] REASON FOR EXAM: PAIN IN THORACIC SPINE FINDINGS: No acute compression fracture. Mild levoscoliosis of the thoracic spine. Moderate degenerative spondylosis in the mid and lower thoracic spine. XR/XR thoracic spine 3V* [id number] IMPRESSION: Degenerative spondylosis without acute abnormality.
--- NOTE | 2024-06-20 13:20 | XR_ITS ---
WS: [id number] XR ribs LT 2V* [id number] REASON FOR EXAM: PAIN IN THORACIC SPINE FINDINGS: Minimally displaced posterior lateral left fourth, sixth and seventh ribs. No pneumothorax or subcutaneous emphysema. No pleural fluid. No acute lung abnormality. XR/XR ribs LT 2V* [id number] IMPRESSION: Left rib fractures as above.
== END 2024-06-20 13:04 | disposition home or self-care (01) ==
LOC: RAD 13:10
PROVIDERS: PCP Family Medicine; Visit Provider Anesthesiology Pain Medicine
DX: M54.6 Pain in thoracic spine (principal); M41.84 Other forms of scoliosis, thoracic region; M47.894 Other spondylosis, thoracic region
CPT/HCPCS: 71100; 72072

== ENCOUNTER → 2024-08-22 10:14 | Outpatient (BNVA) | payer MEDICARE, OTHER, SELFPAY | PROVIDERS: PCP Family Medicine; Visit Provider Podiatrist Foot & Ankle Surgery | DX: I73.9 Peripheral vascular disease, unspecified (principal); B35.1 Tinea unguium; M20.41 Other hammer toe(s) (acquired), right foot; M20.42 Other hammer toe(s) (acquired), left foot | CPT/HCPCS: 11721 ==

== ENCOUNTER → 2024-10-17 11:16 | Outpatient (BNVA) | payer MEDICARE, OTHER, SELFPAY | PROVIDERS: PCP Family Medicine; Visit Provider Podiatrist Foot & Ankle Surgery | DX: I73.9 Peripheral vascular disease, unspecified (principal); B35.1 Tinea unguium; M20.41 Other hammer toe(s) (acquired), right foot; M20.42 Other hammer toe(s) (acquired), left foot; G62.9 Polyneuropathy, unspecified | CPT/HCPCS: 11721; 99214 ==

== ENCOUNTER 2024-12-05 12:55 | Outpatient (CLI) | payer MEDICARE, OTHER, SELFPAY ==
--- NOTE | 2024-12-05 13:00 | XR_ITS ---
WS: [id number] SCREENING DEXA SCAN [employer] CLINICAL INFORMATION: OSTEOPOROSIS COMPARISON: None. FINDINGS: The L1-L4 bone mineral density measures 1.329 g/cm2. This corresponds to a T score score of 1.2 and Z score of 3.3. Left femoral neck bone mineral density measures 0.695 (g/cm2). This corresponds to a T score of -2.5 (no units) and Z score of -0.4 (no units). LEFT forearm bone mineral density measures 0.53. This corresponds to a T score of -4.0 and Z score of -1.4. IMPRESSION Normal bone mineralization lumbar spine. Osteoporosis LEFT femoral neck. Osteoporosis LEFT forearm Patient's FRAX calculated 10 year probability for major osteoporotic fracture is 23.5% and osteoporotic hip fracture is 7.2%.
== END 2024-12-05 12:56 | disposition home or self-care (01) ==
LOC: RAD 12:57
PROVIDERS: PCP Family Medicine; Visit Provider Family Medicine
DX: Z13.820 Encounter for screening for osteoporosis (principal); M81.8 Other osteoporosis without current pathological fracture
CPT/HCPCS: 77080

== ENCOUNTER 2024-12-19 09:59 | Outpatient (CLI) | payer MEDICARE, OTHER, SELFPAY ==
--- NOTE | 2024-12-19 10:09 | MM_ITS ---
WS: [id number] Bilateral screening 3D tomosynthesis digital mammogram, 12/19/2024 10:10 AM Clinical Data: SCREENING Comparison: 12/20/2018 Findings: No spiculated masses or clustered calcifications are seen. There are no secondary signs of carcinoma. There are small vascular calcifications in both breasts. MM/MM scr BI tomosynthesis [id number] Impression: Negative bilateral mammogram unchanged. Recommend annual screening mammograms. BIRADS: 1 - Negative. FOLLOW UP: 1 Year Follow-up DENSITY: There are scattered areas of fibroglandular density. The CAD purchase order checker was used
--- NOTE | 2024-12-19 10:34 | USCV_ITS ---
Zohra Diallo Age: 79 Gender: F : 1945 Exam Date: 12/19/2024 10:42 Ordering Phys: Fady Copeland MD Technologist: KAREL Exam Location: [facility] [place] Indication: Systolic Murmur BP: 156 / 79 HR: 79 Rhythm: Sinus Technical Quality: Adequate MEASUREMENTS (Male / Female) Normal Values 2D ECHO LV Diastolic Diameter PLAX 4.4 cm 4.2 - 5.9 / 3.9 - 5.3 cm IVS Diastolic Thickness 0.6 cm 0.6 - 1.0 / 0.6 - 0.9 cm IVS Systolic Thickness 1.4 cm LVPW Diastolic Thickness 1.1 cm 0.6 - 1.0 / 0.6 - 0.9 cm LVPW Systolic Thickness 0.9 cm LVOT Diameter 1.9 cm LV Ejection Fraction 2D Teich 50.3 % LV Ejection Fraction MOD 4C 71.4 % LV Ejection Fraction MOD 2C 61.2 % LV Ejection Fraction 2C AL 64.1 % LA Diameter 3.0 cm RA Systolic Volume 4C AL 28.7 ml RA Systolic Volume 4C MOD 27.6 ml LA Sys Volume AL 38.3 cm cubed LA Sys Volume Index AL 22.9 cm cubed/m squared Aorta at Sinotubular Diameter 2.3 cm IVC Diameter 1.9 cm DOPPLER AV Peak Velocity 283.3 cm/s LVOT Peak Velocity 96.0 cm/s AV Area Cont Eq vti 1.0 cm squared AV Area Cont Eq pk 1.0 cm squared MV Peak Velocity 136.0 cm/s MV Area PHT 3.0 cm squared Mitral E to A Ratio 0.8 TV Peak Velocity 163.0 cm/s TR Peak Velocity 238.0 cm/s TR Peak Gradient 22.7 mmHg TV Peak E Velocity 53.0 cm/s FINDINGS Left Ventricle Normal left ventricular size, systolic function and wall thickness, with no regional wall motion abnormalities. EF 64%. Unable to assess left ventricular diastolic function due to severe mitral annular calcification. Right Ventricle The right ventricle is normal in size and function. Right Atrium The right atrium is normal in size. Left Atrium The left atrium is normal in size. Mitral Valve Severe mitral annular calcification. Mild mitral valve stenosis with a mean gradient of 3 mmHg at a heart rate of 90 bpm. Mild mitral valve regurgitation Aortic Valve Aortic valve structure not well-visualized. Moderate aortic valve stenosis. Mild aortic valve regurgitation. Tricuspid Valve Trace tricuspid valve regurgitation. Pulmonary artery systolic pressure is normal. Pulmonic Valve Structurally normal pulmonic valve without significant stenosis. There is no pulmonic regurgitation. Pericardium Normal pericardium without effusion. Aorta Normal ascending aorta dimension. IVC The inferior vena cava appears normal. CONCLUSIONS 1. Normal left ventricular size and systolic function, EF 64%. 2. Mild mitral valve stenosis and regurgitation 3. Moderate aortic valve stenosis and mild aortic valve regurgitation Antoni Medina MD, FACC (Electronically Signed) Final Date: 19 December 2024 17:53 S
== END 2024-12-19 10:00 | disposition home or self-care (01) ==
LOC: RAD 10:01
PROVIDERS: PCP Family Medicine; Visit Provider Family Medicine
DX: Z12.31 Encounter for screening mammogram for malignant neoplasm of breast (principal); R92.1 Mammographic calcification found on diagnostic imaging of breast; I34.81 Nonrheumatic mitral (valve) annulus calcification; I34.2 Nonrheumatic mitral (valve) stenosis; I34.0 Nonrheumatic mitral (valve) insufficiency; I35.2 Nonrheumatic aortic (valve) stenosis with insufficiency; I36.1 Nonrheumatic tricuspid (valve) insufficiency
CPT/HCPCS: 77063; 77067; 93306

== ENCOUNTER → 2025-01-16 13:17 | Outpatient (BNVA) | payer MEDICARE, OTHER, SELFPAY | PROVIDERS: PCP Family Medicine; Visit Provider Podiatrist Foot & Ankle Surgery | DX: I73.9 Peripheral vascular disease, unspecified (principal); B35.1 Tinea unguium; M20.41 Other hammer toe(s) (acquired), right foot; M20.42 Other hammer toe(s) (acquired), left foot; G62.9 Polyneuropathy, unspecified | CPT/HCPCS: 11721; 99213 ==

== ENCOUNTER → 2025-02-05 10:10 | Outpatient (BNVA) | payer MEDICARE, OTHER, SELFPAY | PROVIDERS: PCP Family Medicine; Referring Provider Family Medicine; Visit Provider Internal Medicine Cardiovascular Disease | DX: I35.0 Nonrheumatic aortic (valve) stenosis (principal); I10 Essential (primary) hypertension; I34.2 Nonrheumatic mitral (valve) stenosis; Z87.891 Personal history of nicotine dependence; R07.9 Chest pain, unspecified | CPT/HCPCS: 93005; 99204 ==

== ENCOUNTER → 2025-03-20 10:28 | Outpatient (BNVA) | payer MEDICARE, OTHER, SELFPAY | PROVIDERS: PCP Family Medicine; Visit Provider Podiatrist Foot & Ankle Surgery | DX: I73.9 Peripheral vascular disease, unspecified (principal); B35.1 Tinea unguium; M20.41 Other hammer toe(s) (acquired), right foot; M20.42 Other hammer toe(s) (acquired), left foot; G62.9 Polyneuropathy, unspecified | CPT/HCPCS: 11721 ==